=== PATIENT | female | born 1965 | race African-American/Black ===

== ENCOUNTER 2023-06-08 07:19 | Outpatient (REF) | payer OTHER, SELFPAY ==
--- NOTE | ~2023-06-08 | MR_ITS ---
EXAMINATION: MR BRAIN WITHOUT CONTRAST CLINICAL INFORMATION: Headache COMPARISON: None TECHNIQUE: Multiplanar multisequence MR imaging of the brain was obtained without intravenous contrast. FINDINGS: There is no acute infarct on diffusion-weighted imaging. There is no intracranial hemorrhage on iron-sensitive imaging. No extra-axial collection or mass effect/herniation. Scattered periventricular and deep white matter T2 FLAIR hyperintensities consistent with mild to moderate underlying microangiopathy. No hydrocephalus. The ventricles are normal in morphology and size. The major flow voids at the skull base are preserved. The midline structures are normal. The cerebellar tonsils are normally positioned. The craniocervical junction is normal. Marrow signal is within normal limits. The visualized soft tissues are without significant abnormality. Small right maxillary sinus retention cyst. 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 Otherwise unremarkable noncontrast MRI of the brain.
== END 2023-06-08 07:20 | disposition home or self-care (01) ==
LOC: HO.MRI 07:19
PROVIDERS: PCP Family Medicine; Visit Provider Family Medicine
DX: R51.9 Headache, unspecified (principal)
CPT/HCPCS: 70551

== ENCOUNTER 2023-07-26 07:09 | Outpatient (REF) | payer OTHER, SELFPAY ==
[2023-07-26 08:06] LABS: Blood Urea Nitrogen 14 mg/dL (9-16); Estimated Glomerular Filt Rate > 60
== END 2023-07-26 07:10 | disposition home or self-care (01) ==
LOC: HO.LAB 07:09
PROVIDERS: PCP Family Medicine; Visit Provider Psychiatry & Neurology Neurology
DX: G44.209 Tension-type headache, unspecified, not intractable (principal); I67.1 Cerebral aneurysm, nonruptured
CPT/HCPCS: 36415; 82565; 84520

== ENCOUNTER 2023-08-22 07:46 | Outpatient (REF) | payer OTHER, SELFPAY ==
--- NOTE | ~2023-08-22 | CT_ITS ---
EXAMINATION: CT ANGIOGRAM HEAD CT HEAD WITHOUT CONTRAST CLINICAL INFORMATION: Reason for Exam CEREBRAL ARTERITIS COMPARISON: MR brain 06-29 TECHNIQUE: Initial noncontrast technical planner imaging of the head and neck was performed. Noncontrast head CT was also performed. Test bolus sequences followed by intravenous administration 75 mL of Omnipaque 350. Helical imaging was performed in the axial plane from the skull base to the skull vertex. Delayed postcontrast imaging of the head was also performed. The data was processed at the cat scan technologist's workstation for generation of MIP sequences. Angled MIPs and volume rendered reformatted images were also generated at an offline 3D workstation. Stenoses are assessed in accordance with Islas et al. Quantification of Carotid Stenosis on CT Angiography. AJR 2006. 27(1):13-19. [address] CT examination was performed using dose optimization techniques as appropriate, variously including the following: *Automated exposure control *Adjustment of mA and/or kV according to patient size (this includes techniques or standardized protocols for targeted exams where dose is matched to indication/reason for exam; i.e. extremities or head) *Use of iterative reconstruction technique DLP: 2285.79 mGy-cm mGy-cm FINDINGS: CT HEAD: There is no evidence of acute intracranial hemorrhage. No mass-effect or ventricular shift is noted. No acute, territorial loss of pal-white differentiation. The ventricles and sulci are appropriate in size and configuration for the patient's stated age. No abnormal intracranial enhancement is visualized.. No depressed calvarial fracture. The mastoid air cells and the visualized paranasal sinuses are well-aerated. CTA HEAD: Suboptimal evaluation secondary to intracranial venous contamination. Anterior circulation: Right internal carotid artery: No hemodynamically significant stenosis. Right middle cerebral artery: No hemodynamically significant stenosis. Right anterior cerebral artery: Hypoplastic A1 segment. Left internal carotid artery: No hemodynamically significant stenosis. Left middle cerebral artery: No hemodynamically significant stenosis. Left anterior cerebral artery: No hemodynamically significant stenosis. Posterior circulation: Right vertebral artery: No hemodynamically significant stenosis. Left vertebral artery: No hemodynamically significant stenosis. Basilar artery: No hemodynamically significant stenosis. Right posterior cerebral artery: No hemodynamically significant stenosis. Left posterior cerebral artery: No hemodynamically significant stenosis. No high flow vascular malformation or significant aneurysmal dilatation is visualized. The major dural venous sinuses are grossly within normal limits given arterial technique. CT/CT angio head IMPRESSION: CT HEAD: No acute intracranial hemorrhage or territorial loss of pal-white differentiation. CTA HEAD: No proximal vessel occlusion or high-grade stenosis.
[2023-08-22] MEDS: iohexoL 350 MG/ML 100 ML INFUS..BTL IV (09:03)
== END 2023-08-22 07:47 | disposition home or self-care (01) ==
LOC: HO.CT 07:46
PROVIDERS: PCP Family Medicine; Visit Provider Psychiatry & Neurology Neurology
DX: I67.7 Cerebral arteritis, not elsewhere classified (principal)
CPT/HCPCS: 70496; Q9967

== ENCOUNTER 2024-01-31 07:13 | Outpatient (REF) | payer OTHER, SELFPAY ==
--- NOTE | ~2024-01-31 | MM_ITS ---
EXAMINATION: MM SCREENING DIGITAL BREAST TOMOSYNTHESIS, BILATERAL CLINICAL INFORMATION: Screening. Asymptomatic. COMPARISON: Mammography: There are no prior mammograms available for comparison at this time. The prior mammograms can be obtained, an addendum report will be issued after comparison is made. TECHNIQUE: Digital breast tomosynthesis is performed in both the craniocaudal and mediolateral oblique views along with computer-aided detection (CAD). Synthesized 2D images are generated from the tomosynthesis. FINDINGS: There are scattered areas of fibroglandular density (ACR BI-RADS breast composition Category b). There are no significant masses, abnormal calcifications, or other abnormalities. MM/MM tomosynthesis screening BI IMPRESSION: No mammographic evidence of malignancy. ASSESSMENT: BI-RADS BI-RADS 1 - Negative RECOMMENDATION: Routine annual mammography screening. 1 year F/U This examination should not preclude the clinical evaluation of a suspicious palpable abnormality. This patient's information was entered into a reminder system with a target due date for their next mammogram.
== END 2024-01-31 07:14 | disposition home or self-care (01) ==
LOC: HO.MAMMO 07:13
PROVIDERS: PCP Family Medicine; Visit Provider Family Medicine
DX: Z12.31 Encounter for screening mammogram for malignant neoplasm of breast (principal)
CPT/HCPCS: 77063; 77067

== ENCOUNTER → 2024-01-31 07:45 | Outpatient (BNV) | payer OTHER, SELFPAY | PROVIDERS: PCP Family Medicine; Visit Provider Radiology Diagnostic Radiology | DX: Z12.31 Encounter for screening mammogram for malignant neoplasm of breast (principal) | CPT/HCPCS: 77063; 77067 ==

== ENCOUNTER 2024-04-26 15:31 | Emergency (ER) | payer OTHER, SELFPAY ==
--- NOTE | ~2024-04-26 | CT_ITS ---
EXAMINATION: CT HEAD WITHOUT CONTRAST CLINICAL INFORMATION: Intractable headache. COMPARISON: CTA head and neck 08/22/2023. TECHNIQUE: Contiguous axial imaging was performed from the skull base to vertex without intravenous administration of contrast. This CT examination was performed using dose optimization techniques as appropriate, variously including the following: *Automated exposure control *Adjustment of mA and/or kV according to patient size (this includes techniques or standardized protocols for targeted exams where dose is matched to indication/reason for exam; i.e. extremities or head) *Use of iterative reconstruction technique DLP: 684 mGy-cm FINDINGS: There is no evidence of acute intracranial hemorrhage or edematous territorial infarction. A few foci of hypoattenuation in the periventricular and deep white matter are consistent with mild microangiopathy. Askew-white matter differentiation is preserved. Proportional prominence of the ventricles and sulcal spaces. No evidence for obstructive hydrocephalus. No abnormal mass effect or midline shift. No extra-axial fluid collections. No acute soft tissue or osseous abnormalities. The mastoid air cells and paranasal sinuses are clear. CT/CT head/brain wo IV con IMPRESSION: No evidence of acute intracranial hemorrhage or edematous territorial infarction. Electronically signed by: Isela Hassan MD 04/26/2024 04:27 PM EDT
[2024-04-26 15:48] VITALS: BP 158/87; PULSE 75; RESP 18; TEMP 36.3; O2SAT 97; BMI 40.6
--- NOTE | 2024-04-26 15:53 | ED.HA ---
HPI - Headache General Chief Complaint: Headache Stated Complaint: headache-abd pain Time Seen by Provider: 04/26/24 22:17 Source: patient Mode of arrival: ambulatory Limitations: no limitations History of Present Illness ED Provider: Dr. Camarena HPI Narrative: After work patient had N/V/D and developed a headache. She has continued not to feel well and her headache was worse so she decided to come to the ED Related Data Previous Rx's ?Medication ?Instructions ?Recorded naproxen 500 mg tablet (Naprosyn) 500 mg PO BID #20 tabs 04/27/24 ondansetron 4 mg disintegrating 4 mg PO Q8H 4 days #12 tabs 04/27/24 tablet Allergies Allergy/AdvReac Type Severity Reaction Status Date / Time No Known Allergies Allergy Verified 04/26/24 15:51 Review of Systems Review of Systems: Yes all other systems are reviewed and are negative Neurologic: Denies Sensory deficit (Neuro) [facility] Social History Social History Advance Directives: No Advance Directives Information Provided: No Do you have a plan to hurt others: No Plan Physical Exam Vital Signs: Vital Signs: Last Vital Signs Temp 98.3 F 04/26/24 22:29 Pulse 64 04/26/24 22:29 Resp 14 04/26/24 22:29 BP 152/78 H 04/26/24 22:29 Pulse Ox 97 04/26/24 22:29 O2 Del Method Room Air 04/26/24 22:29 BMI result Body Mass Index 40.6 Const: Other: tired with headache Nutritional Appearance: average body habitus Orientation/consciousness: oriented to person and patient oriented x3 Limitations: no limitations HEENT: Head: Yes normal to inspection Ears: external ears normal General nose exam: Normal external nose present Mouth: Normal oral and palatal mucosa present and oropharynx normal Throat: Yes posterior oropharynx normal Eyes: General: appearance normal, both eyes and all related structures Neck: Other: supple Neck: Yes normal visual inspection Chest: Chest palpation & inspection: normal inspection of the chest Resp: Auscultation: clear to auscultation bilaterally Cardio: Jugular venous distension: no JVD Rate: regular rate Rhythm: regular rhythm Heart sounds: S1 normal heart sound present and S2 normal heart sound present GI: Inspection: Yes normal to inspection Palpation (GI): Soft to palpation, nontender and No hepatosplenomegaly present Auscultation: normal bowel sounds : General: Yes no CVA tenderness Back/Spine/Pelvis: Back: no CVA tenderness Skin: General skin exam: no rashes or lesions noted Neuro: General: oriented to person and patient oriented x3 Cranial nerves: Yes CN's II-XII intact bilaterally Motor exam (neuro): 5/5 motor strength present throughout Sensory Exam: No Sensory deficit (Neuro) Extrem: General: Yes normal to inspection Psych: Appearance: grossly normal Course Course Course Narrative: This is a Rapid Medical Examination (RME) performed by Sánchez Rasheed PA-C in triage. Full HPI, ROS, assessment and treatment plan per primary provider in the Main ED. 58 yo female here for eval of headache x this morning. pt works at [employer] [place]. got home from work, was feeling ill. reports laying down and began to have diffuse headache. nausea w/ one episodes of vomiting and diarrhea. no injury/ trauma. no thinners. hx of migraines, takes Fioricet. Plan: labs, viral swabs, ct Reevaluation(s) Reevaluation #1: patient hydrated give toradol and reglan feels better will get home on nsaids Time: 00:03 Medications Administered Generic Name Dose Route Start Last Admin Trade Name Freq PRN Reason Stop Dose Admin Sodium Chloride 1,000 mls @ 500 mls/hr 04/26/24 22:30 04/26/24 22:40 Ns IVCONT 04/27/24 00:29 500 mls/hr .Q2H ZULMA Administration Discontinued Medications Generic Name Dose Route Start Last Admin Trade Name Freq PRN Reason Stop Dose Admin Ketorolac Tromethamine 30 mg 04/26/24 22:26 04/26/24 22:43 Ketorolac Tromethamine 30 Mg/Ml Vial IVPUSH 04/26/24 22:27 30 mg ONCE ONE Administration Metoclopramide HCl 10 mg 04/26/24 22:26 04/26/24 22:42 Metoclopramide Hcl 10 Mg/2 Ml Vial IVPUSH 04/26/24 22:27 10 mg ONCE ONE Administration Medical Decision Making Differential Diagnosis Differential Diagnoses: The differential diagnosis associated with the presentation includes (Migraine, cerebral bleed, viral illness, gastroenteritis) Admission/Observation Consideration of admission/observation: Escalation of care including admission/observation considered (upon arrival patient was considered for admission) Lab Data 04/26/24 16:37 04/26/24 16:37 Labs: Lab Results 04/26/24 04/26/24 Range/Units 16:37 17:05 WBC 7.9 (4.8-10.8) X10*3/uL RBC 4.88 (4.20-5.50) X10*6/uL Hgb 13.1 (12.0-16.0) g/dl Hct 41.5 (37.0-47.0) % MCV 85.0 (80.0-98.0) fL MCH 26.8 L (27.0-33.0) pg MCHC 31.6 (31.0-35.0) g/dl RDW 13.9 (11.0-16.0) % Plt Count 263 (160-400) X10*3/uL MPV 9.5 (9.4-12.3) fL Immature Gran % (Auto) 0.3 (0.0-0.4) % Neut % (Auto) 73.9 H (45-73) % Lymph % (Auto) 20.2 (20-40) % [place] % (Auto) 4.5 (2-11) % Eos % (Auto) 0.8 (0-4) % Baso % (Auto) 0.3 (0-2) % Lymph # (Auto) 1.6 (1.2-4.9) X10*3/uL [place] # (Auto) 0.4 (0.1-1.2) X10*3/uL Eos # (Auto) 0.1 (0.0-0.4) X10*3/uL Baso # (Auto) 0.0 (0.0-0.2) X10*3/uL Abs Immat Gran (auto) 0.02 (0.00-0.03) X10*3/uL Absolute Neuts (auto) 5.9 (2.0-8.3) x10*3/uL Absolute Nucleated RBC 0.000 (0.0-0.012) X10*3/uL Nucleated RBC % (auto) 0.0 (0.0-0.2) /100WBC Sodium 139 (135-145) mmol/L Potassium 3.7 (3.3-5.1) mmol/L Chloride 106 (96-108) mmol/L Carbon Dioxide 26 (22-29) mmol/L Anion Gap 11 L (12-20) BUN 9 (9-16) mg/dL Creatinine 0.68 (0.5-1.4) mg/dL Estim Creat Clear Calc 97.7 Estimated GFR > 60 Random Glucose 127 H (60-115) mg/dL Calcium 10.2 (8.4-10.2) mg/dL Magnesium 2.0 (1.6-2.6) mg/dL Total Bilirubin 0.6 (0.0-1.0) mg/dL AST 18 (5-31) U/L ALT 22 (0-31) U/L Alkaline Phosphatase 97 (39-117) U/L Total Protein 7.8 (6.5-8.0) g/dL Albumin 4.2 (3.5-5.0) g/dL Lipase 17 (8-78) U/L Urine Color Yellow Urine Appearance Clear Urine pH 8.5 (5.0-9.0) Ur Specific [place] 1.010 (1.005-1.025) Urine Protein Negative (Neg-Trace) mg/dL Urine Glucose (UA) Negative (Negative) mg/dL Urine Ketones Trace (Negative) mg/dL Urine Blood Negative (Negative) Urine Nitrite Negative (Negative) Ur Leukocyte Esterase Negative (Negative) Influenza Type A (PCR) NEGATIVE (Negative) Influenza Type B (PCR) NEGATIVE (Negative) RSV RNA Qual (PCR) NEGATIVE (Negative) SARS-CoV-2 RNA (RT-PCR) NEGATIVE (Negative) Independent Interpretation I performed an independent interpretation of an: CT Scan (brain: no mass, bleed or stroke) Radiology Impression Discussion of test interpretation with radiology: I have reviewed the radiologist's reading. Independent Historian Clinical information obtained from an independent historian. History obtained from or confirmed by: Spouse Prescription Management I considered prescription management with: Antibiotic (no evidence of bacterial infection) Discharge Plan Discharge Clinical Impression: Headache, Viral illness, Gastroenteritis Patient Disposition: Home, Self-Care Instructions: Acute Headache (ED), Acute Nausea and Vomiting (ED), Acute Diarrhea (ED), Viral Syndrome (ED) Prescriptions: New ondansetron 4 mg tablet,disintegrating 4 mg PO Q8H 4 Days Qty: 12 0RF naproxen [Naprosyn] 500 mg tablet 500 mg PO BID Qty: 20 0RF Referrals: Physician,Unknown J [Primary Care Provider] - 5 days Print Language: [place]
--- NOTE | 2024-04-26 16:43 | MHC.EDTECH ---
Patient blood drawn and rsv/covid swab collected all sent to lab .
[2024-04-26 16:44] LABS: MANUAL DIFF FLAG NO
[2024-04-26 16:48] LABS: Basophils Percent Auto 0.3 % (0-2); Eosinophils Absolute Auto 0.1 X10*3/uL (0.0-0.4); Eosinophils Percent Auto 0.8 % (0-4); Hematocrit 41.5 % (37.0-47.0); Hemoglobin 13.1 g/dl (12.0-16.0); Imm Gran Abs Auto 0.02 X10*3/uL (0.00-0.03); Imm Gran Pct Auto 0.3 % (0.0-0.4); Lymphocytes Absolute Auto 1.6 X10*3/uL (1.2-4.9); Lymphocytes Percent Auto 20.2 % (20-40); Mean Corpuscular HGB Conc 31.6 g/dl (31.0-35.0); Mean Corpuscular Hemoglobin 26.8 pg (27.0-33.0); Mean Platelet Volume 9.5 fL (9.4-12.3); Monocytes Absolute Auto 0.4 X10*3/uL (0.1-1.2); Monocytes Percent Auto 4.5 % (2-11); Neutrophils Absolute Auto 5.9 x10*3/uL (2.0-8.3); Neutrophils Percent Auto 73.9 % (45-73); Platelet Count 263 X10*3/uL (160-400); Red Blood Count 4.88 X10*6/uL (4.20-5.50); Red Cell Distribution Width 13.9 % (11.0-16.0); White Blood Count 7.9 X10*3/uL (4.8-10.8)
[2024-04-26 17:11] LABS: Alanine Aminotransferase 22 U/L (0-31); Albumin Level 4.2 g/dL (3.5-5.0); Alkaline Phosphatase 97 U/L (39-117); Anion Gap 11 (12-20); Aspartate Amino Transferase 18 U/L (5-31); Bilirubin Total 0.6 mg/dL (0.0-1.0); Blood Urea Nitrogen 9 mg/dL (9-16); Calcium 10.2 mg/dL (8.4-10.2); Carbon Dioxide 26 mmol/L (22-29); Chloride 106 mmol/L (96-108); Creatinine Clr Calc Pharmacy 97.7; Estimated Glomerular Filt Rate > 60; Glucose Random 127 mg/dL (60-115); Lipase 17 U/L (8-78); Potassium 3.7 mmol/L (3.3-5.1); Sodium 139 mmol/L (135-145); Total Protein 7.8 g/dL (6.5-8.0)
[2024-04-26 17:45] LABS: Influenza A PCR NEGATIVE (Negative); Influenza B PCR NEGATIVE (Negative); Resp Syncy Virus RNA Qual PCR NEGATIVE (Negative); SARS COV2 PCR INHOUSE NEGATIVE (Negative)
[2024-04-26 17:48] LABS: Appearance Urine Clear; Color Urine Yellow; Glucose Urine UA Negative (Negative); Leukocyte Esterase Urine Negative (Negative); Nitrite Urine Negative (Negative); PH 8.5 (5.0-9.0); Urine Blood Negative (Negative); Urine Ketones Trace mg/dL (Negative); Urine Protein Negative (Neg-Trace)
[2024-04-26 21:19] VITALS: BP 143/62; PULSE 84; RESP 14; TEMP 36.7; O2SAT 99
[2024-04-26 22:29] VITALS: BP 152/78; PULSE 64; RESP 14; TEMP 36.8; O2SAT 97
[2024-04-26] MEDS: 0.9 % Sodium Chloride 1,000 ML 500 ML IVCONT (22:40)
[2024-04-26] MEDS: Metoclopramide HCl 10 MG/2 ML VIAL IVPUSH (22:42)
[2024-04-26] MEDS: Ketorolac Tromethamine 30 MG/ML VIAL IVPUSH (22:43)
--- NOTE | 2024-04-26 23:30 | MHC.EDTECH ---
This tech took over care of patient at 2300,rounds completed,patient is resting quietly,call beck in reach
[2024-04-27 00:26] VITALS: BP 116/57; PULSE 62; RESP 16; TEMP 36.6; O2SAT 98
[2024-04-27 00:45] VITALS: BP 116/57; PULSE 62; RESP 16; TEMP 36.6; O2SAT 98
== END 2024-04-27 00:45 | disposition home or self-care (01) ==
PROVIDERS: Physician Assistant Medical; Emergency Provider Emergency Medicine
DX: K52.9 Noninfective gastroenteritis and colitis, unspecified (principal); B34.9 Viral infection, unspecified; R51.9 Headache, unspecified; R11.2 Nausea with vomiting, unspecified; Z79.899 Other long term (current) drug therapy; Z03.818 Encounter for observation for suspected exposure to other biological agents ruled out
CPT/HCPCS: 0241U; 70450; 80053; 81003; 83690; 83735; 85025; 96361; 96374; 96375; 99284; J1885; J2765

== ENCOUNTER 2024-08-20 22:53 | Emergency (ER) | payer OTHER, SELFPAY ==
--- NOTE | 2024-08-20 | ECG_ITS ---
Test Reason : CP Blood Pressure : */* mmHG Vent. Rate : 114 BPM Atrial Rate : 114 BPM P-R Int : 194 ms QRS Dur : 78 ms QT Int : 316 ms P-R-T Axes : 70 76 63 degrees QTcB Int : 435 ms Sinus tachycardia Biatrial enlargement Abnormal ECG No previous ECGs available Referred By: Generic ED Physician Electronically Signed By: Bryce Mcneill
--- NOTE | ~2024-08-20 | XR_ITS ---
CLINICAL HISTORY: cough, sob, cp 2 view chest x-ray Comparison: None Findings: Patchy airspace disease in the right midlung and right lung base. Lungs otherwise clear. No pleural abnormality. Heart size normal. Bones intact. IMPRESSION: 1. Right midlung and right basilar airspace opacities likely developing pneumonitis or pneumonia. This document has been electronically signed by: Miguel Zeng MD on 08/20/2024 23:48:16
[2024-08-20 23:10] VITALS: BP 130/80; PULSE 113; RESP 20; TEMP 37.1; O2SAT 99; BMI 40.2
[2024-08-20 23:26] LABS: Basophils Percent Auto 0.2 % (0-2); Eosinophils Absolute Auto 0.1 X10*3/uL (0.0-0.4); Eosinophils Percent Auto 0.9 % (0-4); Hematocrit 40.5 % (37.0-47.0); Imm Gran Abs Auto 0.04 X10*3/uL (0.00-0.03); Imm Gran Pct Auto 0.5 % (0.0-0.4); Lymphocytes Absolute Auto 1.4 X10*3/uL (1.2-4.9); Lymphocytes Percent Auto 17.7 % (20-40); MANUAL DIFF FLAG NO; Mean Corpuscular HGB Conc 32.1 g/dl (31.0-35.0); Mean Corpuscular Hemoglobin 27.1 pg (27.0-33.0); Mean Corpuscular Volume 84.4 fL (80.0-98.0); Mean Platelet Volume 9.2 fL (9.4-12.3); Monocytes Absolute Auto 0.5 X10*3/uL (0.1-1.2); Monocytes Percent Auto 5.7 % (2-11); Platelet Count 277 X10*3/uL (160-400)
[2024-08-20 23:39] LABS: Alanine Aminotransferase 24 U/L (0-31); Alkaline Phosphatase 87 U/L (39-117); Anion Gap 12 (12-20); Aspartate Amino Transferase 24 U/L (5-31); Bilirubin Total 0.5 mg/dL (0.0-1.0); Blood Urea Nitrogen 10 mg/dL (9-16); Calcium 9.6 mg/dL (8.4-10.2); Carbon Dioxide 24 mmol/L (22-29); Chloride 108 mmol/L (96-108); Creatinine Clr Calc Pharmacy 90.6; Estimated Glomerular Filt Rate > 60; Glucose Random 156 mg/dL (60-115); Potassium 3.7 mmol/L (3.3-5.1); Sodium 140 mmol/L (135-145); Total Protein 7.4 g/dL (6.5-8.0)
[2024-08-20 23:48] LABS: Troponin-I High Sensitivity < 2.7 ng/L (<3.5-17.0)
[2024-08-21 00:03] LABS: Influenza A PCR NEGATIVE (Negative); Influenza B PCR NEGATIVE (Negative); Resp Syncy Virus RNA Qual PCR NEGATIVE (Negative); SARS COV2 PCR INHOUSE NEGATIVE (Negative)
--- NOTE | 2024-08-21 00:22 | ED.URI ---
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 and shortness of breath started since early today with low-grade fever no chest pain no leg pain no other family member sick Related Data Previous Rx's ?Medication ?Instructions ?Recorded naproxen 500 mg tablet (Naprosyn) 500 mg PO BID #20 tabs 04/27/24 ondansetron 4 mg disintegrating 4 mg PO Q8H 4 days #12 tabs 04/27/24 tablet albuterol sulfate 90 mcg/actuation 2 puff inhalation Q6H PRN 08/21/24 aerosol inhaler shortness of breath or wheezing #8.5 grams azithromycin 250 mg tablet 250 mg PO DAILY 4 days #4 tabs 08/21/24 (Zithromax) cefuroxime axetil 500 mg tablet 500 mg PO BID 7 days #14 tabs 08/21/24 codeine 10 mg-guaifenesin 100 mg/5 10 ml PO Q6H PRN cough #237 mL 08/21/24 mL oral liquid prednisone 20 mg tablet 40 mg (2 x 20 mg) PO DAILY #10 tabs 08/21/24 Allergies Allergy/AdvReac Type Severity Reaction Status Date / Time No Known Allergies Allergy Verified 08/20/24 23:13 Review of Systems Review of Systems: Yes all other systems are reviewed and are negative [facility] Social History Social History Alcohol intake: never Advance Directives: No Do you have a plan to hurt others: No Plan Physical Exam Vital Signs: Vital Signs: Last Vital Signs Temp 98.3 F 08/21/24 01:25 Pulse 122 H 08/21/24 01:25 Resp 22 H 08/21/24 01:25 BP 121/80 08/21/24 01:25 Pulse Ox 98 08/21/24 01:25 O2 Del Method Room Air 08/21/24 01:25 BMI result Body Mass Index 40.2 Appearance: Alert. Oriented X3. Frequent cough Eyes: No pallor or icterus ENT: Pharynx normal. Oral Mucosa moist Neck: Normal inspection. Neck supple. CVS: Normal heart rate and rhythm. Pulses normal. Respiratory: No respiratory distress. Equal air entry bilateral, bilateral wheezing Abdomen: Soft and nontender. Bowel sounds are present, no mass palpable, no CVA tenderness Skin: Skin warm and dry. Normal skin color. Normal skin turgor. Extremities: No lower extremity edema. No calf tenderness Neuro: Oriented X 3. No motor deficit. Medications Administered Discontinued Medications Generic Name Dose Route Start Last Admin Trade Name Freq PRN Reason Stop Dose Admin Azithromycin 500 mg 08/21/24 00:20 08/21/24 00:38 Azithromycin 500 Mg Tablet PO 08/21/24 00:21 500 mg ONCE ONE Administration Ceftriaxone Sodium 1 gm 08/21/24 01:31 08/21/24 02:04 Ceftriaxone Sodium 1 Gm Vial IVPUSH 08/21/24 01:32 1 gm ONCE ONE Administration Albuterol Sulfate 2.5 mg/ 0 mg 08/21/24 00:20 08/21/24 00:35 Albuterol/Ipratropium 3 ml INHALE 08/21/24 00:21 1 dose ONCE ONE Administration Guaifenesin/Codeine Phosphate 10 ml 08/21/24 01:32 08/21/24 02:04 Guaifen/Codeine Sf 200/20/10ml 10 Ml Liquid PO 08/21/24 01:33 10 ml ONCE ONE Administration Sodium Chloride 1,000 mls @ 999 mls/hr 08/21/24 01:31 08/21/24 03:06 Ns IV 08/21/24 02:31 Infused .Q1H1M ONE Infusion Ketorolac Tromethamine 30 mg 08/21/24 01:31 08/21/24 02:04 Ketorolac Tromethamine 30 Mg/Ml Vial IVPUSH 08/21/24 01:32 30 mg ONCE ONE Administration Prednisone 60 mg 08/21/24 00:20 08/21/24 00:38 Prednisone 20 Mg Tablet PO 08/21/24 00:21 60 mg ONCE ONE Administration Medical Decision Making Medical Decision Making [facility] Narrative: Patient with acute onset of cough chest x-ray showed early pneumonia likely atypical bacteria mycoplasma patient has received DuoNeb treatments and Zithromax and Rocephin 08/11/2024 at 04:35 hours, Dr. Jose Haas's note: I assumed care of this patient from my colleague, Dr. Thomas Skinner at 02:00 hours Patient states she was feeling significantly better. Patient's lung exam revealed no wheezing, rhonchi or rales. She did have an occasional cough when I was in the room. Patient was going to be treated for community-acquired pneumonia with Zithromax and cefuroxime. Patient was also given prescription for prednisone, albuterol and codeine cough syrup. I did discuss the discharge plan with the patient, she was given printed and verbal instructions and discharged home. She was also given a work note. I told her that if her symptoms got worse evaluation she should return to the emergency department so that we can re-evaluate her. Differential Diagnosis Differential Diagnoses: The differential diagnosis associated with the presentation includes Admission/Observation Consideration of admission/observation: Escalation of care including admission/observation considered (Yes) Lab Data MDM Lab Attestation statement: I reviewed the patient's lab results. 08/20/24 23:19 08/20/24 23:19 Labs: Lab Results 08/20/24 Range/Units 23:19 WBC 8.0 (4.8-10.8) X10*3/uL RBC 4.80 (4.20-5.50) X10*6/uL Hgb 13.0 (12.0-16.0) g/dl Hct 40.5 (37.0-47.0) % MCV 84.4 (80.0-98.0) fL MCH 27.1 (27.0-33.0) pg MCHC 32.1 (31.0-35.0) g/dl RDW 14.0 (11.0-16.0) % Plt Count 277 (160-400) X10*3/uL MPV 9.2 L (9.4-12.3) fL Immature Gran % (Auto) 0.5 H (0.0-0.4) % Neut % (Auto) 75.0 H (45-73) % Lymph % (Auto) 17.7 L (20-40) % [place] % (Auto) 5.7 (2-11) % Eos % (Auto) 0.9 (0-4) % Baso % (Auto) 0.2 (0-2) % Lymph # (Auto) 1.4 (1.2-4.9) X10*3/uL [place] # (Auto) 0.5 (0.1-1.2) X10*3/uL Eos # (Auto) 0.1 (0.0-0.4) X10*3/uL Baso # (Auto) 0.0 (0.0-0.2) X10*3/uL Abs Immat Gran (auto) 0.04 H (0.00-0.03) X10*3/uL Absolute Neuts (auto) 6.0 (2.0-8.3) x10*3/uL Absolute Nucleated RBC 0.000 (0.0-0.012) X10*3/uL Nucleated RBC % (auto) 0.0 (0.0-0.2) /100WBC Sodium 140 (135-145) mmol/L Potassium 3.7 (3.3-5.1) mmol/L Chloride 108 (96-108) mmol/L Carbon Dioxide 24 (22-29) mmol/L Anion Gap 12 (12-20) BUN 10 (9-16) mg/dL Creatinine 0.72 (0.5-1.4) mg/dL Estim Creat Clear Calc 90.6 Estimated GFR > 60 Random Glucose 156 H (60-115) mg/dL Calcium 9.6 (8.4-10.2) mg/dL Total Bilirubin 0.5 (0.0-1.0) mg/dL AST 24 (5-31) U/L ALT 24 (0-31) U/L Alkaline Phosphatase 87 (39-117) U/L Troponin I High Sens < 2.7 (<3.5-17.0) ng/L Total Protein 7.4 (6.5-8.0) g/dL Albumin 4.0 (3.5-5.0) g/dL Influenza Type A (PCR) NEGATIVE (Negative) Influenza Type B (PCR) NEGATIVE (Negative) RSV RNA Qual (PCR) NEGATIVE (Negative) SARS-CoV-2 RNA (RT-PCR) NEGATIVE (Negative) Radiology Impression Discussion of test interpretation with radiology: I have reviewed the radiologist's reading. Radiologist Impression: [address] [address] XRay Report Signed Patient: Lana Art MR#: [id number] : 1965 Acct:[id number] Age/Sex: 59 / F ADM Date: 08/20/24 Loc: HO.ED Attending Dr: Ordering Physician: Generic ED Physician Date of Service: 08/20/24 Procedure(s): XR chest 2V Accession Number(s): [id number] cc: Generic ED Physician; Jaspal Salmeron MD~ CLINICAL HISTORY: cough, sob, cp 2 view chest x-ray Comparison: None Findings: Patchy airspace disease in the right midlung and right lung base. Lungs otherwise clear. No pleural abnormality. Heart size normal. Bones intact. IMPRESSION: 1. Right midlung and right basilar airspace opacities likely developing pneumonitis or pneumonia Prescription Management I considered prescription management with: Antibiotic (Zithromax and cefuroxime) and Other (Albuterol inhaler, prednisone, codeine/guaifenesin cough suppressant,) Discharge Plan Discharge Clinical Impression: Community acquired pneumonia, Bronchitis Patient Disposition: Still a Patient Instructions: Acute Bronchitis (ED), Community Acquired Pneumonia (ED) Additional Instructions: Take antibiotic as prescribed Prednisone, inhaler and cough drops as prescribed Follow-up with your doctor in 2 days. Please return to the emergency department if your symptoms get worse or if you develop any symptoms that are concerning to you. Prescriptions: New azithromycin [Zithromax] 250 mg tablet 250 mg PO DAILY 4 Days Qty: 4 0RF Rx Instructions: start on day 2 of therapy prednisone 20 mg tablet 40 mg PO DAILY Qty: 10 0RF codeine-guaifenesin 10-100 mg/5 mL liquid 10 ml PO Q6H PRN (Reason: cough) Qty: 237 0RF cefuroxime axetil 500 mg tablet 500 mg PO BID 7 Days Qty: 14 0RF albuterol sulfate 90 mcg/actuation HFA aerosol inhaler 2 puff inhalation Q6H PRN (Reason: shortness of breath or wheezing) Qty: 8.5 0RF No Action ondansetron 4 mg tablet,disintegrating 4 mg PO Q8H 4 Days Qty: 12 0RF naproxen [Naprosyn] 500 mg tablet 500 mg PO BID Qty: 20 0RF Stand Alone Forms: Work/School Release Print Language: Maltese
[2024-08-21] MEDS: Albuterol Sulfate 2.5 MG, Albuterol/Iprat 2.5/0.5MG 3 ML 3 ML INHALE (00:35)
[2024-08-21 00:36] VITALS: PULSE 102; O2SAT 98
[2024-08-21] MEDS: predniSONE 20 MG TABLET 60 MG PO (00:38)
[2024-08-21] MEDS: Azithromycin 500 MG TABLET PO (00:38)
[2024-08-21 01:25] VITALS: BP 121/80; PULSE 122; RESP 22; TEMP 36.8; O2SAT 98
[2024-08-21 01:44] VITALS: PULSE 110; RESP 18; O2SAT 100
[2024-08-21] MEDS: cefTRIAXone sodium 1 GM VIAL IVPUSH (02:04)
[2024-08-21] MEDS: Ketorolac Tromethamine 30 MG/ML VIAL IVPUSH (02:04)
[2024-08-21] MEDS: guaiFEN/Codeine SF 200/20/10ML 10 ML LIQUID PO (02:04)
[2024-08-21] MEDS: 0.9 % Sodium Chloride 1,000 ML 999 ML IV (02:05)
[2024-08-21 02:45] VITALS: PULSE 97; RESP 16; O2SAT 97
[2024-08-21 04:00] VITALS: BP 133/72; PULSE 89; RESP 14; O2SAT 96
--- NOTE | 2024-08-21 04:31 | PC.NURSE ---
Dr. Haas to bedside speakin with patient and re-evaluating. Patient reports feeling better than arrival. Visible improvement noted by this RN. No wheezing upon auscultation. Decreased cough. Vitals within normal limits. Patient reports being able to sleep after medications & IV fluids. Plan to discharge home with Rx medications.
[2024-08-21 04:56] VITALS: BP 133/72; PULSE 89; RESP 14; TEMP 36.9; O2SAT 96
== END 2024-08-21 04:56 | disposition still patient (30) ==
PROVIDERS: Internal Medicine; Emergency Provider Emergency Medicine Emergency Medical Services; PCP Family Medicine
DX: J18.9 Pneumonia, unspecified organism (principal); J40 Bronchitis, not specified as acute or chronic; R05.9 Cough, unspecified; Z03.818 Encounter for observation for suspected exposure to other biological agents ruled out
CPT/HCPCS: 0241U; 36415; 71046; 80053; 84484; 85025; 93005; 94640; 96361; 96374; 96375; 99284; 99285; J0696; J1885

== ENCOUNTER → 2024-08-20 23:03 | Outpatient (BNV) | payer OTHER, SELFPAY | PROVIDERS: Emergency Provider Emergency Medicine Emergency Medical Services; PCP Family Medicine; Visit Provider Internal Medicine Cardiovascular Disease | DX: R07.9 Chest pain, unspecified (principal) | CPT/HCPCS: 93010 ==

== ENCOUNTER → 2024-08-20 23:30 | Outpatient (BNV) | payer OTHER, SELFPAY | PROVIDERS: Emergency Provider Internal Medicine; PCP Family Medicine; Visit Provider Radiology Diagnostic Radiology | DX: J18.9 Pneumonia, unspecified organism (principal) | CPT/HCPCS: 71046 ==

== ENCOUNTER 2025-07-16 07:47 | Outpatient (AMB) | payer OTHER, SELFPAY ==
--- NOTE | 2025-07-16 08:35 | MHC.OFFVIS ---
Intake Visit Reasons: F/U Allergies No Known Allergies Allergy (Verified 08/20/24 23:13) Medication List - Last Reconciled 07/16/25 by Liss Cardenas MD acetaminophen 1,000 mg PO Q6H PRN melatonin mg PO HPI Comments Details: ?59 yr woman with chronic headaches. Wakes with ROSE 3-4/ week that lasts till midday. Head feels achy. One visit to ER. When it is really bad she has trouble talking. That occurs 6-12 months and was vomiting. Sleeps from 4pm to 9.30pm only and tosses and turn. Works 2 jobs. Did not like the side effects of Butalbital. She first developed headaches around 2020, occurring once or twice a month for which she takes Tylenol and goes to bed. They can last several hours to a whole day. No associated symptoms or triggers. Within the last 2 years, she has had 2 episodes of intense headache for 15 min., one after having some hot prune juice and the second after a spicy gummy bear. She felt like her head was going to explode. That sensation lasted 15 min. and then cleared. During the second one, which occurred in January or December of 2022 where she felt slight nausea and was a little confused. After this, symptoms resolved she was back to normal. She has been waking up with the headaches a few times a month. They're described as generalized pressure and throbbing with no photophobia, sonophobia, nausea or vomiting. No visual symptoms. She takes Tylenol and goes to bed. MRI of the brain on 06/08/23 showed mild to moderate white matter microvascular changes. She says her blood pressure runs normal, although today it was elevated in the office. 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 No snoring or sleep apnea. [facility] Medical History (Updated 07/16/25 @ 08:41 by Liss Cardenas MD) Cerebral aneurysm Tension headache Social History Alcohol intake: never Review of Systems Const Details: Sleep:? Difficulty getting to sleep?admits.? Difficulty maintaining sleep?admits.? Urge to move legs?denies.? Teeth grinding?denies.? Shouting or Kicking during sleep?denies.? Abnormal behavior during sleep?denies.? Excessive sleep?denies.? Snoring?denies.? Daytime sleepiness?denies.? ?? General/Constitutional:? Change in appetite?denies.? Chills?denies.? Fatigue?denies.? Fever?denies.? Weight gain?admits.? Weight loss?denies.? ?? Ophthalmologic:? Blurred vision?denies.? Diminished visual acuity?denies.? ?? ENT:? Stuffiness?denies.? Decreased hearing?denies.? Dry mouth?denies.? Ear pain?denies.? Nosebleed?denies.? Ringing in the ears?denies.? Sinus pain?denies.? Sore throat?denies.? Swollen glands?denies.? ?? Endocrine:? Cold intolerance?denies.? Excessive thirst?denies.? Frequent urination?denies.? Heat intolerance?denies.? ?? Respiratory:? Shortness of breath?denies.? Chest pain?denies.? Cough?denies.? ?? Breast:? Breast lump?denies.? Nipple discharge?denies.? ?? Cardiovascular:? Chest pain at rest?denies.? Chest pain with exertion?denies.? Claudication?denies.? Dizziness?denies.? Fluid accumulation in the legs?denies.? Irregular heartbeat?denies.? Palpitations?denies.? ?? Gastrointestinal:? Abdominal pain?denies.? Constipation?denies.? Diarrhea?denies.? Difficulty swallowing?denies.? Heartburn?denies.? Nausea?denies.? Rectal bleeding?denies.? ?? Hematology:? Easy bruising?denies.? Prolonged bleeding?denies.? ?? Genitourinary:? Frequent urination?admits.? Urgency?denies.? Incontinence?denies.? Erectile Dysfunction?denies.? ?? Musculoskeletal:? Neck pain?denies.? Back pain?denies.? Muscle aches?denies.? Painful joints?denies.? Sciatica?denies.? Weakness?denies.? ?? Podiatric:? Difficulty walking?denies.? Foot numbness?denies.? ?? Neurologic:? Difficulty swallowing?denies.? Balance difficulty?denies.? Coordination?normal.? Difficulty speaking?denies.? Dizziness?denies.? Fainting?denies.? Gait abnormality?denies.? Headache?admits.? Loss of strength?denies.? Loss of use of extremity?denies.? Low back pain?denies.? Memory loss?admits.? Seizures?denies.? Tics?denies.? Tingling/Numbness?denies.? Transient loss of vision?denies.? Tremor?denies.? ?? Psychiatric:? Anxiety?admits.? Auditory/visual hallucinations?denies.? Delusions?denies.? Depressed mood?admits.? Stressors?admits.? Substance abuse?denies.? Suicidal thoughts?denies.? ?? Physical Exam Neuro Other: Neurological: ? Abnormal neurological findings:??none.? Mental Status:?alert and oriented X 3,?Normal attention, orientation, memory and affect.? Cranial Nerves:?Pupils are equal, round and reactive to light. Fundoscopy shows normal disc bilaterally. External occular muscles are intact. Visual kong are full, no ptosis. Face is symmetrical, no facial weakness or droop. Facial sensations are normal. Tongue protrudes in midline. Palate elevates symmetrically. Shoulder shrugging is normal..? Motor Examination:?Normal muscle tone, bulk and strength,?No atrophy or fasciculations,?No drift of the extended upper extremities,?Deep tendon reflexes are 2+?,?Plantars are flexor?.? Straight Leg Raising:?90 degrees.? Sensory Exam:?Normal light touch, temperature, pinprick, vibration and joint-position sensations?,?Rhomberg sign is absent.? Coordination:?no ataxia,?no titubation,?pawpjp-[id number], [id number] test and rapid alternating movements were normal.? Gait Exam:?Within normal limits.? Cerebellar Signs:?[id number] and [id number] is normal,?no dysdiadochokinesia?.? Extrapyramidal System:?No tremor, rigidity with normal facial expressions,?No bradykinesia, no bradyphrenia. Normal arm swing and posture. No propulsion or retropulsion.? Speech:?Normal,?no dysphasia or dysarthria..? Mini Mental Status Exam: ? Level of Consciousness:?Alert.? Orientation:?Knows correct year, month, date, day and season,?Knows correct city, county and state. Knows correct location and floor.? Registration:?Able to register 3 objects.? Attention:?Serial 7's performed accurately.? Recall:?Able to recall 3 out of 3 objects.? Language:?Normal spontaneous speech, fluency, repetition,naming, comprehension, reading and writing.? Total Score:?30/30.? General Examination: ? GENERAL APPEARANCE:?normal,?in no acute distress.? HEAD:?normocephalic,?atraumatic.? EYES:?sclera non-icteric,?conjunctiva clear.? EARS:?auditory canal clear,?tympanic membrane intact, clear.? NOSE:?no lesions.? ORAL CAVITY:?gums normal,?mucosa moist,?no lesions.? THROAT:?clear.? NECK/THYROID:?no cervical lymphadenopathy,?thyroid normal,?neck supple, full range of motion,?no carotid bruit.? SKIN:?no rashes,?no significant birthmarks.? HEART:?S1, S2 normal,?no murmurs.? LUNGS:?clear anteriorly and posteriorly.? CHEST:?no gross rib deformity,?clear to auscultation.? BACK:?normal exam of spine.? EXTREMITIES:?no edema.? PERIPHERAL PULSES:?normal.? PSYCH:?alert, oriented,?cognitive function intact,?cooperative with exam.? Assessment & Plan Assessment & Plan (1) Cerebral microvascular disease: Comment: 08/2023 CTA brain normal. Code(s): I67.89 - Other cerebrovascular disease Category: Medical (2) Tension headache: Code(s): G44.209 - Tension-type headache, unspecified, not intractable Category: Medical Plan Prefers not to be on daily meds. Only wants something PRN. So will give her Excedrin prn. Mcdaniel snot want another MRI of the brain or labs because of financial reasons. Coding Level of Care Code Est Pt Level 4 (08693) Diagnoses Cerebral microvascular disease I67.89 Tension headache G44.209
== END 2025-07-16 16:08 | disposition home or self-care (01) ==
LOC: HO.HSM 07:48
PROVIDERS: Visit Provider Psychiatry & Neurology Neurology
DX: I67.89 Other cerebrovascular disease (principal); G44.209 Tension-type headache, unspecified, not intractable
CPT/HCPCS: 99214